=== PATIENT | male | born 1940 | race Caucasian/White ===

== ENCOUNTER 2016-11-20 10:38 | Emergency (ER) | payer OTHER, BC ==
[~2016-11-20] VITALS: Ht 160 cm; Wt 105.5 kg
[~2016-11-20 10:38] MED LIST: 8 HOUR PAIN RE650 M1 PO; ACCUPRIL40 MG PO; CARVEDILOL3.125 MG PO; CHILD ASPIRIN81 M1 PO; CLONIDINE HCL0.1 MG PO; CYCLOBENZAPRINE5 MG PO; DAILY VALUE1 EACH PO; FLOMAX0.4 MG PO; FLUOXETINE HCL40 MG PO; GLUCOPHAGE1000 MG PO; HYDROCHLOROTHIA25 MG PO; LO-DOSE ASPIRIN81 M2 PO; LOFIBRA,TRIGLI160 MG PO; NORVASC10 MG PO; PATANOL OP100 DROP/5 BOTH EYES; POTASSIUM CHLO20 MEQ PO; REFRESH LI300 DROP/1 BOTH EYES; TYLENOL PM1 CAPLET PO; ZESTRIL40 MG PO
[2016-11-20 12:01] LABS: EOSINOPHIL (%) 3.7 % (0-5); EOSINOPHIL COUNT 0.3 K/uL (0-0.3); HEMATOCRIT 48.5 % (38.0-50.0); IMMATURE GRANULOCYTE (%) 0.4 % (0.0-0.7); IMMATURE GRANULOCYTE COUNT 0.3 K/uL; LYMPHOCYTE COUNT 1.1 K/uL (1.0-2.8); MCH 29.3 PG (29.0-34.0); MCV 86.1 FL (86-99); MEAN PLAT.VOLUME 9.6 uM^3 (9.0-12.4); MONOCYTE (%) 7.4 % (3-12); MONOCYTE COUNT 0.6 K/uL (0-0.8); NEUTROPHIL (%) 74.1 % (45-76); NEUTROPHIL COUNT 5.5 K/uL (1.8-6.4); PLATELET COUNT 214 K/uL (156-360); RBC DIS.WIDTH-CV 13.6 % (11.8-14.6); RBC DIS.WIDTH-SD 42.6 % (39-53); RED BLOOD COUNT 5.63 M/uL (4.00-5.50); WHITE BLOOD COUNT 7.5 K/uL (4.1-10.2)
[2016-11-20 12:12] LABS: CHLORIDE 100 mEq/L (99-109); POTASSIUM 3.6 mEq/L (3.7-5.4); SODIUM 142 mEq/L (136-147)
[2016-11-20 12:13] LABS: GLUCOSE 141 mg/dL (70-99)
[2016-11-20 12:15] LABS: ANION GAP 12 MEQ/L (2-14)
[2016-11-20 12:17] LABS: GFR ESTIMATE (CALCULATED) > 59 mL/min/
[2016-11-20 12:18] LABS: UREA NITROGEN (BUN) 13 mg/dL (9-23)
[2016-11-20 13:36] VITALS: BP 207/117
== END 2016-11-20 13:37 | disposition home or self-care (01) ==
LOC: EME 10:38
PROVIDERS: Emergency Medicine
DX: I10 Essential (primary) hypertension (principal); R51 Headache; E11.9 Type 2 diabetes mellitus without complications; Z79.82 Long term (current) use of aspirin; Z87.891 Personal history of nicotine dependence
CPT/HCPCS: 70450; 80048; 85025; 99281; 99284

== ENCOUNTER 2018-05-09 17:22 | Emergency (ER) | payer OTHER, BC ==
[~2018-05-09] VITALS: Ht 160 cm; Wt 97.3 kg
[2018-05-09 18:16] LABS: HEMOGLOBIN 16.1 G/DL (12.5-16.6); MCV 85.7 FL (86-99); PLATELET COUNT 269 K/uL (156-360); RBC DIS.WIDTH-CV 12.6 % (11.8-14.6); RBC DIS.WIDTH-SD 39.2 % (39-53); RED BLOOD COUNT 5.37 M/uL (4.00-5.50); WHITE BLOOD COUNT 8.6 K/uL (4.1-10.2)
[2018-05-09 18:28] LABS: ALBUMIN 4.3 g/dL (3.2-4.8); CHLORIDE 97 mEq/L (99-109)
[2018-05-09 18:29] LABS: POTASSIUM 3.8 mEq/L (3.7-5.4); SODIUM 137 mEq/L (136-147)
[2018-05-09 18:31] LABS: GLUCOSE 136 mg/dL (70-99); TOTAL PROTEIN 7.7 g/dL (6.4-8.3)
[2018-05-09 18:33] LABS: TOTAL BILIRUBIN 0.5 mg/dL (0.0-1.0)
[2018-05-09 18:34] LABS: ALKALINE PHOSPHATASE 40 IU/L (3-129); CREATININE 1.3 mg/dL (0.6-1.3); GFR ESTIMATE (CALCULATED) 57 mL/min/ (58.99-99999)
[2018-05-09 18:36] LABS: AST (GOT) 17 IU/L (2-34); UREA NITROGEN (BUN) 21 mg/dL (9-23)
[2018-05-09 18:37] LABS: ALT (GPT) 11 IU/L (3-49)
[2018-05-09 18:59] LABS: APPEARANCE CLEAR ((CLEAR)); BILIRUBIN NEGATIVE; BLOOD NEGATIVE; COLOR YELLOW ((YELLOW)); GLUCOSE (STRIP) NEGATIVE; KETONES NEGATIVE; LEUKOCYTES NEGATIVE; NITRITE NEGATIVE; PROTEIN (STRIP) 100; SPECIFIC GRAVITY 1.019 (1.000-1.030); UROBILINOGEN 0.2 MG/DL (0.2-1.0)
[2018-05-09 19:05] LABS: BACTERIA NONE SEEN /HPF; EPITHELIAL CELLS RARE /HPF; HYALINE CASTS 0-5 /LPF; MUCUS TRACE /LPF; RED BLOOD CELLS 0-5 /HPF (0-5); UCUL ADDED? NO; WHITE BLOOD CELLS 0-5 /HPF (0-5)
[2018-05-09] MEDS ORDERED: MOTRIN600 MG PO (21:58)
[2018-05-09] MEDS ORDERED: FLOMAX0.4 MG PO (22:22)
[2018-05-09 22:36] VITALS: BP 185/105
== END 2018-05-09 22:36 | disposition home or self-care (01) ==
LOC: EME 17:22
DX: N13.2 Hydronephrosis with renal and ureteral calculous obstruction (principal); R41.0 Disorientation, unspecified; R10.9 Unspecified abdominal pain; T40.2X5A Adverse effect of other opioids, initial encounter; R42 Dizziness and giddiness; Z86.73 Personal history of transient ischemic attack (TIA), and cerebral infarction without residual deficits; R32 Unspecified urinary incontinence; I25.2 Old myocardial infarction; I10 Essential (primary) hypertension; E11.9 Type 2 diabetes mellitus without complications; Z79.84 Long term (current) use of oral hypoglycemic drugs; Z79.82 Long term (current) use of aspirin; Z87.442 Personal history of urinary calculi; Z87.891 Personal history of nicotine dependence
CPT/HCPCS: 70450; 74176; 80053; 81003; 85027; 93005; 99281; 99285; J1885; J7040